=== PATIENT | male | born 1950 | race Caucasian/White ===

== ENCOUNTER 2024-12-08 17:30 | Observation (INO) | payer MEDICARE, OTHER ==
[~2024-12-08] VITALS: Ht 188 cm; Wt 122.5 kg
[~2024-12-08 17:30] MED LIST: ASPI325; ASPI81EC; CARI350; CLON.1 PO; HYDACE5 PO; HYDCHL25; HYDMOR4 PO; HYDMOR8; HYDMOR8 PO; LEVFLO500 PO; LORA1; LORA1 PO; MIRT30 PO; NAPR500 PO; ONDA8ODT MM; OXYACE10; OXYACE5T; OXYACE5T PO; PARO20; PARO30; PROM25; PROM25 PO; RAMI2.5 PO; RAMI5; RXHYDMOR2 PO; SPIHYD; TEMA15; TEMA30; TRAZ100 PO
[2024-12-08 17:49] LABS: Bicarbonate Venous 25.9 mmol/L (24.0-30.0); PCO2 Venous 36.2 mmHg (38-42); pH Blood Venous 7.46 (7.34-7.37)
[2024-12-08 17:52] LABS: BASOPHILS ABSOLUTE AUTO 0.03 K/mm3 (0.00-0.23); BASOPHILS PERCENT AUTO 0 % (0-2); EOSINOPHILS ABSOLUTE AUTO 0.02 K/mm3 (0.00-0.68); EOSINOPHILS PERCENT AUTO 0 % (0-6); Hematocrit 35.6 % (37.0-53.0); Hemoglobin 11.9 g/dL (13.5-17.5); IMMATURE GRAN ABSOLUTE AUTO 0.03 K/mm3 (0.00-0.10); IMMATURE GRAN PERCENT AUTO 0 % (0-1); LYMPHOCYTES PERCENT AUTO 13 % (21-46); MONOCYTES ABSOLUTE AUTO 0.73 K/mm3 (0.16-1.47); MONOCYTES PERCENT AUTO 8 % (4-13); Mean Corpuscular HGB 29.3 pg (26.0-34.0); Mean Corpuscular HGB Conc 33.4 g/dL (31.5-36.5); Mean Corpuscular Volume 88 fL (80-100); Mean Platelet Volume 10.3 fL (9.1-12.4); NEUTROPHILS ABSOLUTE AUTO 7.37 K/mm3 (1.96-9.15); NEUTROPHILS PERCENT AUTO 79 % (41-73); Platelet Count 238 K/mm3 (150-400); RDW Coefficient Variation 12.6 % (11.7-14.2); RDW Standard Deviation 40.5 fL (35.1-46.3); Red Blood Cell Count 4.06 M/mm3 (4.30-5.90); White Blood Cell Count 9.38 K/mm3 (4.00-11.30)
[2024-12-08 18:07] LABS: Source, Urine Straight Cath
[2024-12-08 18:11] LABS: Bilirubin, Urine Neg (Neg); Blood, Urine 1+ (Neg); Color, Urine Yellow (P-Yellow); Glucose Qualitative, Urine Neg (Neg); Ketones, Urine 2+ (Neg); Leukocyte Esterase, Urine Neg (Neg); Nitrite, Urine Neg (Neg); Protein, Urine 1+ (Neg); Urobilinogen, Urine 1+ (Normal)
[2024-12-08 18:18] LABS: Appearance, Urine Hazy (Clear); Bacteria Few /hpf; Squamous Epithelial Cells Few /hpf (Few)
[2024-12-08 18:19] LABS: Amorphous Mod (0-Heavy)
[2024-12-08 18:30] LABS: Albumin, Blood 3.6 g/dL (3.4-5.0); Albumin/Globulin Ratio 0.9 (0.8-1.8); Bilirubin, Total 0.8 mg/dL (0.1-1.0); Bun/Creatinine Ratio 15.1 (12.0-20.0); Calcium, Blood 9.3 mg/dL (8.5-10.1); Creatinine, Blood 1.19 mg/dL (0.60-1.20); Magnesium, Blood 2.2 mg/dL (1.6-2.4); Potassium, Blood 3.4 mmol/L (3.5-5.5); Total Protein, Blood 7.6 g/dL (6.4-8.2)
[2024-12-08 19:14] LABS: U Amphetamine Screen Not Detected; U Barbituate Screen Not Detected; U Benzodiazapine Screen DETECTED; U Buprenorphine Screen Not Detected; U Cannabinoids Screen Not Detected; U Cocaine Screen Not Detected; U Methadone Screen Not Detected; U Methamphetamine Screen Not Detected; U Opiates Screen Not Detected; U Oxycodone Screen Not Detected; U Phencyclidine Screen Not Detected
[2024-12-08] MEDS ORDERED: ELIQUIS5 M3 (21:14)
[2024-12-08] MEDS ORDERED: ESCI10 (21:16)
[2024-12-08] MEDS ORDERED: CHLO25B (21:16)
[2024-12-08] MEDS ORDERED: LISI20 PO (21:17)
[2024-12-08] MEDS ORDERED: Ativan1 MG (21:17)
[2024-12-08] MEDS ORDERED: LEVSOD75 PO (21:17)
[2024-12-08] MEDS ORDERED: METO50ER (21:18)
[2024-12-08] MEDS ORDERED: TAMS.4ER PO (21:19)
[2024-12-08] MEDS ORDERED: OMEP20ER PO (21:19)
[2024-12-08] MEDS ORDERED: PRAV20 PO (21:19)
[2024-12-08] MEDS ORDERED: TESTOSTERONE200 MG IM (21:20)
[2024-12-08] MEDS ORDERED: TRAZ100 (21:20)
[2024-12-08] MEDS ORDERED: TraZODone HCl 100 MG Tab PO ONE (21:25)
[2024-12-08] MEDS ORDERED: Acetaminophen 500 MG Tab PO ONE (22:55)
[2024-12-09] MEDS ORDERED: Methyl Salicylate/Menth/Camph 57 GM TUBE TOP ONE ×2 (00:20→23:55)
[2024-12-09] MEDS ORDERED: LORazepam 1 MG Tab PO PRN (13:10)
[2024-12-09 19:02] LABS: CORONAVIRUS COVID-19 AG Negative (NEGATIVE); INFLUENZA A AG Negative (NEGATIVE); INFLUENZA B AG Negative (NEGATIVE)
[2024-12-09] MEDS ORDERED: Mirtazapine 15 MG SoluTab PO SCH (21:00)
[2024-12-10 09:00] VITALS: BP 116/63
[2024-12-10] MEDS ORDERED: Acetaminophen 500 MG Tab PO ONE (11:50)
[2024-12-10 12:53] LABS: Influenza A, PCR NEGATIVE (NEGATIVE); Influenza B, PCR NEGATIVE (NEGATIVE); Resp Syncytial Virus, PCR NEGATIVE (NEGATIVE); SARS-Cov-2 (COVID-19) PCR, MMC NEGATIVE (NEGATIVE)
[2024-12-13 06:09] LABS: 7-AMINOCLONAZEPAM, URN, QUANT <5 ng/mL; A-HYDROXYALPRAZOLAM, URN, QNT <5 ng/mL; A-HYDROXYMIDAZOLAM, URN, QNT <20 ng/mL; ALPRAZOLAM, URN, QUANT <5 ng/mL; CHLORDIAZEPOXIDE, URN, QUANT <20 ng/mL; CLONAZEPAM, URN, QUANT <5 ng/mL; DIAZEPAM, URN, QUANT <20 ng/mL; LORAZEPAM, URN, QUANT 569 ng/mL; MIDAZOLAM, URN, QUANT <20 ng/mL; NORDIAZEPAM, URN, QUANT <20 ng/mL; OXAZEPAM, URN, QUANT <20 ng/mL; TEMAZEPAM, URN, QUANT <20 ng/mL
== END 2024-12-10 16:25 ==
LOC: ER 17:30 → EOR 17:31
PROVIDERS: Emergency Medicine; Student in an Organized Health Care Education/Training Program; ADMIT Student in an Organized Health Care Education/Training Program
DX: F33.3 Major depressive disorder, recurrent, severe with psychotic symptoms (principal); R45.851 Suicidal ideations; I48.91 Unspecified atrial fibrillation; I10 Essential (primary) hypertension; J45.909 Unspecified asthma, uncomplicated; G89.29 Other chronic pain; K21.9 Gastro-esophageal reflux disease without esophagitis; Z79.899 Other long term (current) drug therapy; Z88.5 Allergy status to narcotic agent; Z88.8 Allergy status to other drugs, medicaments and biological substances
CPT/HCPCS: 0241U; 71045; 80053; 80320; 81001; 82140; 82803; 83605; 83735; 83880; 84484; 85025; 87428-QW; 93005; 93010; 99285-25; A9270; G0378; G0481

== ENCOUNTER 2024-12-16 21:12 | Observation (INO) | payer MEDICARE, OTHER ==
[~2024-12-16] VITALS: Ht 175.3 cm; Wt 108.9 kg
[~2024-12-16 21:12] MED LIST changes: +Ativan1 MG; +CHLO25B; +ELIQUIS5 M3; +ESCI10; +LEVSOD75 PO; +LISI20 PO; +METO50ER; +OMEP20ER PO; +PRAV20 PO; +TAMS.4ER PO; +TESTOSTERONE200 MG IM; +TRAZ100
[2024-12-16 22:01] LABS: BASOPHILS ABSOLUTE AUTO 0.04 K/mm3 (0.00-0.23); BASOPHILS PERCENT AUTO 0 % (0-2); EOSINOPHILS PERCENT AUTO 1 % (0-6); Hematocrit 34.4 % (37.0-53.0); Hemoglobin 11.4 g/dL (13.5-17.5); IMMATURE GRAN ABSOLUTE AUTO 0.06 K/mm3 (0.00-0.10); IMMATURE GRAN PERCENT AUTO 1 % (0-1); LYMPHOCYTES ABSOLUTE AUTO 1.59 K/mm3 (0.84-5.20); LYMPHOCYTES PERCENT AUTO 16 % (21-46); MONOCYTES ABSOLUTE AUTO 0.73 K/mm3 (0.16-1.47); MONOCYTES PERCENT AUTO 8 % (4-13); Mean Corpuscular HGB 29.6 pg (26.0-34.0); Mean Corpuscular HGB Conc 33.1 g/dL (31.5-36.5); Mean Corpuscular Volume 89 fL (80-100); Mean Platelet Volume 10.4 fL (9.1-12.4); NEUTROPHILS PERCENT AUTO 74 % (41-73); Platelet Count 251 K/mm3 (150-400); RDW Coefficient Variation 12.7 % (11.7-14.2); RDW Standard Deviation 41.8 fL (35.1-46.3); Red Blood Cell Count 3.85 M/mm3 (4.30-5.90); White Blood Cell Count 9.72 K/mm3 (4.00-11.30)
[2024-12-16 22:22] LABS: Alanine Aminotransfer (ALT/SGP 21 U/L (12-78); Albumin, Blood 3.1 g/dL (3.4-5.0); Albumin/Globulin Ratio 0.8 (0.8-1.8); Alk Phos 112 U/L (50-136); Anion Gap 9 mmol/L (3-11); Aspartate Aminotrans (AST/SGOT 18 U/L (12-37); Bilirubin, Total 0.2 mg/dL (0.1-1.0); Blood Urea Nitrogen 30 mg/dL (8-24); Bun/Creatinine Ratio 25.6 (12.0-20.0); CO2, Blood 24 mmol/L (21-32); Calcium, Blood 8.8 mg/dL (8.5-10.1); Chloride, Blood 109 mmol/L (98-108); Creatinine, Blood 1.17 mg/dL (0.60-1.20); Ethanol (Alcohol), Blood, Med <3 mg/dL; Glomerular Filtration Rate 65 (60-); Glucose, Blood 124 mg/dL (70-99); Potassium, Blood 3.5 mmol/L (3.5-5.5); Salicylate <1.7 mg/dL (2.8-20.0); Sodium, Blood 138 mmol/L (136-145); Total Protein, Blood 7.1 g/dL (6.4-8.2)
[2024-12-16 22:23] LABS: Acetaminophen, Random <2.0 ug/mL (10.0-30.0)
[2024-12-16] MEDS ORDERED: LORazepam 1 MG Tab PO ONE (22:45)
[2024-12-16 22:50] LABS: Free Thyroxine 1.26 ng/dL (0.70-1.60)
[2024-12-16 23:15] VITALS: BP 137/77
[2024-12-17] MEDS ORDERED: TraZODone HCl 100 MG Tab PO ONE (00:10)
[2024-12-17 05:51] LABS: Source, Urine Clean Catch
[2024-12-17 05:56] LABS: Bilirubin, Urine Neg (Neg); Blood, Urine 1+ (Neg); Glucose Qualitative, Urine Neg (Neg); Ketones, Urine Neg (Neg); Leukocyte Esterase, Urine 2+ (Neg); Nitrite, Urine Neg (Neg); Protein, Urine 1+ (Neg); Urobilinogen, Urine 1+ (Normal)
[2024-12-17 06:01] LABS: Color, Urine Yellow (P-Yellow)
[2024-12-17 06:02] LABS: Appearance, Urine Hazy (Clear)
[2024-12-17 06:03] LABS: Amorphous Mod (0-Heavy); Red Blood Cells, Urine 0-2 /hpf (0-2); Squamous Epithelial Cells Mod /hpf (Few); White Blood Cells, Urine 50-100 /hpf (0-5)
[2024-12-17 06:04] LABS: Bacteria Many /hpf
[2024-12-17 06:11] LABS: U Amphetamine Screen Not Detected; U Barbituate Screen Not Detected; U Benzodiazapine Screen Not Detected; U Buprenorphine Screen Not Detected; U Cannabinoids Screen Not Detected; U Cocaine Screen Not Detected; U Methadone Screen Not Detected; U Methamphetamine Screen Not Detected; U Opiates Screen Not Detected; U Oxycodone Screen Not Detected; U Phencyclidine Screen Not Detected
[2024-12-17] MEDS ORDERED: Apixaban 5 MG Tab PO SCH (09:00)
[2024-12-17] MEDS ORDERED: TraZODone HCl 100 MG Tab PO SCH (21:00)
== END 2024-12-18 09:00 ==
LOC: ER 21:12 → EOR 21:13
PROVIDERS: Student in an Organized Health Care Education/Training Program; ADMIT Emergency Medicine
DX: F33.2 Major depressive disorder, recurrent severe without psychotic features (principal); I10 Essential (primary) hypertension; J45.909 Unspecified asthma, uncomplicated; K21.9 Gastro-esophageal reflux disease without esophagitis; Z79.01 Long term (current) use of anticoagulants; Z79.890 Hormone replacement therapy; Z79.899 Other long term (current) drug therapy; Z88.8 Allergy status to other drugs, medicaments and biological substances; Z88.6 Allergy status to analgesic agent; Z88.5 Allergy status to narcotic agent
CPT/HCPCS: 80053; 80320; 81001; 84439; 84443; 85025; 87086; 93005; 93010; 99285-25; A9270; G0378; G0480

== ENCOUNTER 2025-01-03 19:51 | Observation (INO) | payer MEDICARE, OTHER ==
[~2025-01-03] VITALS: Ht 175.3 cm; Wt 108.9 kg
[2025-01-06 10:45] VITALS: BP 123/108
== END 2025-01-06 13:20 ==
LOC: ER 19:51 → EOR 23:29
PROVIDERS: ADMIT Emergency Medicine
DX: F33.2 Major depressive disorder, recurrent severe without psychotic features (principal); R45.851 Suicidal ideations; J45.909 Unspecified asthma, uncomplicated; I10 Essential (primary) hypertension; K21.9 Gastro-esophageal reflux disease without esophagitis; K27.9 Peptic ulcer, site unspecified, unspecified as acute or chronic, without hemorrhage or perforation; Z79.01 Long term (current) use of anticoagulants; Z79.899 Other long term (current) drug therapy; Z88.5 Allergy status to narcotic agent; Z88.8 Allergy status to other drugs, medicaments and biological substances

== ENCOUNTER 2025-06-14 21:46 | Emergency (ER) | payer MEDICARE, OTHER ==
[~2025-06-14] VITALS: Ht 175.3 cm; Wt 117.9 kg
[2025-06-14] MEDS ORDERED: OxyCODONE 10/Acetamin 325 TABLET PO ONE (22:25)
[2025-06-14] MEDS ORDERED: OXYACE7.5T PO (23:20)
[2025-06-15 00:19] VITALS: BP 149/89
== END 2025-06-15 00:26 | disposition home or self-care (01) ==
LOC: ER 21:46
DX: M16.11 Unilateral primary osteoarthritis, right hip (principal); J45.909 Unspecified asthma, uncomplicated; I10 Essential (primary) hypertension; K21.9 Gastro-esophageal reflux disease without esophagitis
CPT/HCPCS: 73502; 99283-25; A9270

== ENCOUNTER 2025-08-01 11:00 | Observation (INO) | payer MEDICARE, OTHER ==
[~2025-08-01] VITALS: Ht 175.3 cm; Wt 117.9 kg
[~2025-08-01 11:00] MED LIST changes: -ELIQUIS5 M3; +ELIQUIS5 M3 PO; +OXYACE7.5T PO
[2025-08-01 12:08] LABS: Hematocrit 33.0 % (37.0-53.0); Hemoglobin 10.7 g/dL (13.5-17.5); Mean Corpuscular HGB Conc 32.4 g/dL (31.5-36.5); Mean Corpuscular Volume 96 fL (80-100)
[2025-08-01 12:09] LABS: BASOPHILS ABSOLUTE AUTO 0.02 K/mm3 (0.00-0.23); BASOPHILS PERCENT AUTO 0 % (0-2); EOSINOPHILS ABSOLUTE AUTO 0.13 K/mm3 (0.00-0.68); EOSINOPHILS PERCENT AUTO 2 % (0-6); IMMATURE GRAN ABSOLUTE AUTO 0.06 K/mm3 (0.00-0.10); IMMATURE GRAN PERCENT AUTO 1 % (0-1); LYMPHOCYTES ABSOLUTE AUTO 0.94 K/mm3 (0.84-5.20); LYMPHOCYTES PERCENT AUTO 12 % (21-46); MONOCYTES ABSOLUTE AUTO 0.64 K/mm3 (0.16-1.47); MONOCYTES PERCENT AUTO 8 % (4-13); NEUTROPHILS ABSOLUTE AUTO 6.25 K/mm3 (1.96-9.15); NEUTROPHILS PERCENT AUTO 78 % (41-73); NRBC ABSOLUTE 0.00 K/mm3 (0.00-0.02); NRBC Auto 0.0 /100 WBC (0.0-0.2); Platelet Count 188 K/mm3 (150-400); RDW Coefficient Variation 13.9 % (11.7-14.2); RDW Standard Deviation 48.9 fL (35.1-46.3)
[2025-08-01 12:10] LABS: Source, Urine Clean Catch
[2025-08-01 12:19] LABS: Bilirubin, Urine Neg (Neg); Glucose Qualitative, Urine Neg (Neg); Ketones, Urine Neg (Neg); Leukocyte Esterase, Urine 3+ (Neg); Protein, Urine 1+ (Neg); Specific Gravity, Urine 1.005 (1.003-1.022); Urobilinogen, Urine NORM (Normal)
[2025-08-01 12:40] LABS: Acetaminophen, Random <2.0 ug/mL (10.0-30.0); Alanine Aminotransfer (ALT/SGP 24 U/L (12-78); Albumin, Blood 3.4 g/dL (3.4-5.0); Albumin/Globulin Ratio 0.9 (0.8-1.8); Anion Gap 7 mmol/L (3-11); Aspartate Aminotrans (AST/SGOT 16 U/L (12-37); Bilirubin, Total 0.4 mg/dL (0.1-1.0); Blood Urea Nitrogen 21 mg/dL (8-24); CO2, Blood 25 mmol/L (21-32); Calcium, Blood 8.5 mg/dL (8.5-10.1); Chloride, Blood 111 mmol/L (98-108); Creatinine, Blood 1.13 mg/dL (0.60-1.20); Ethanol (Alcohol), Blood, Med <3 mg/dL; Globulin, Blood 3.7 g/dL (2.2-4.0); Glucose, Blood 84 mg/dL (70-99); Potassium, Blood 4.2 mmol/L (3.5-5.5); Salicylate <1.7 mg/dL (2.8-20.0); Sodium, Blood 139 mmol/L (136-145); Thyroid Stimulating Hormone 1.210 uIU/mL (0.360-4.800); Total Protein, Blood 7.1 g/dL (6.4-8.2)
[2025-08-01] MEDS ORDERED: ATOR40TA PO (12:42)
[2025-08-01] MEDS ORDERED: BUPROPION XL450 MG PO (12:43)
[2025-08-01] MEDS ORDERED: DULO60 PO (12:44)
[2025-08-01] MEDS ORDERED: FERSU300 PO (12:46)
[2025-08-01] MEDS ORDERED: LITH300C PO (12:52)
[2025-08-01] MEDS ORDERED: METO50ER PO (12:53)
[2025-08-01] MEDS ORDERED: Acetaminophen650 M1 PO (12:55)
[2025-08-01 12:56] LABS: Color, Urine Pale Yellow (P-Yellow)
[2025-08-01] MEDS ORDERED: ONELAX10 MG PR (12:56)
[2025-08-01 12:57] LABS: Red Blood Cells, Urine 0-2 /hpf (0-2); White Blood Cells, Urine 25-50 /hpf (0-5)
[2025-08-01] MEDS ORDERED: LOPE2C PO (12:58)
[2025-08-01 13:00] LABS: Lithium 0.54 mmol/L (0.60-1.20)
[2025-08-01] MEDS ORDERED: NITROGLYCERIN0.4 MG SL (13:01)
[2025-08-01] MEDS ORDERED: Seroquel Xr50 MG PO (13:03)
[2025-08-01] MEDS ORDERED: ONDA4ODT MM (13:03)
[2025-08-01 13:09] LABS: U Amphetamine Screen Not Detected; U Barbiturate Screen Not Detected; U Benzodiazapine Screen Not Detected; U Buprenorphine Screen Not Detected; U Cannabinoids Screen Not Detected; U Cocaine Screen Not Detected; U Methadone Screen Not Detected; U Methamphetamine Screen Not Detected; U Opiates Screen Not Detected; U Oxycodone Screen DETECTED; U Phencyclidine Screen Not Detected
[2025-08-01] MEDS ORDERED: TRAZ50 PO (13:12)
[2025-08-01] MEDS ORDERED: GENTLE LAX400 MG/5 M PO (13:14)
[2025-08-01] MEDS ORDERED: Fleet Enema132 ML PR (13:16)
[2025-08-01 18:51] VITALS: BP 128/75
== END 2025-08-01 21:30 ==
LOC: ER 11:00 → EOR 11:01
PROVIDERS: ADMIT Emergency Medicine
DX: F33.2 Major depressive disorder, recurrent severe without psychotic features (principal); R45.851 Suicidal ideations; I10 Essential (primary) hypertension; F10.20 Alcohol dependence, uncomplicated; K21.9 Gastro-esophageal reflux disease without esophagitis; K27.9 Peptic ulcer, site unspecified, unspecified as acute or chronic, without hemorrhage or perforation; Z60.0 Problems of adjustment to life-cycle transitions; Z79.899 Other long term (current) drug therapy; Z88.6 Allergy status to analgesic agent; Z88.8 Allergy status to other drugs, medicaments and biological substances
CPT/HCPCS: 80053; 80178; 80320; 81001; 84439; 84443; 85025; 99285; A9270; G0378; G0480

== ENCOUNTER 2025-08-24 09:25 | Emergency (ER) | payer MEDICARE, OTHER ==
[~2025-08-24] VITALS: Ht 175.3 cm; Wt 124.7 kg
[~2025-08-24 09:25] MED LIST changes: +ATOR40TA PO; +Acetaminophen650 M1 PO; +BUPROPION XL450 MG PO; +DULO60 PO; +FERSU300 PO; +Fleet Enema132 ML PR; +GENTLE LAX400 MG/5 M PO; +LITH300C PO; +LOPE2C PO; +METO50ER PO; +NITROGLYCERIN0.4 MG SL; +ONDA4ODT MM; +ONELAX10 MG PR; +Seroquel Xr50 MG PO; +TRAZ50 PO
[2025-08-24 10:28] VITALS: BP 126/79
== END 2025-08-24 12:27 | disposition home or self-care (01) ==
LOC: ER 09:25
DX: S12.121A Other nondisplaced dens fracture, initial encounter for closed fracture (principal); S09.90XA Unspecified injury of head, initial encounter; I48.91 Unspecified atrial fibrillation; I10 Essential (primary) hypertension; J45.909 Unspecified asthma, uncomplicated; K21.9 Gastro-esophageal reflux disease without esophagitis; Z98.1 Arthrodesis status; Z88.5 Allergy status to narcotic agent; Z88.6 Allergy status to analgesic agent; Z88.8 Allergy status to other drugs, medicaments and biological substances; Z79.890 Hormone replacement therapy; Z79.01 Long term (current) use of anticoagulants; Z79.899 Other long term (current) drug therapy; W19.XXXA Unspecified fall, initial encounter
CPT/HCPCS: 70450; 72125; 93005; 93010; 99285-25; L0160